=== PATIENT | male | born 2005 | race Caucasian/White ===

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

== ENCOUNTER 2025-05-07 21:46 | Emergency (ER) | payer SELFPAY ==
[2025-05-07 21:48] VITALS: BP 120/70; PULSE 95; RESP 18; TEMP 36.9; O2SAT 97; BMI 26.9
--- NOTE | 2025-05-07 21:56 | ECG_ITS ---
[facility] Test Date: 2025-05-07 Pat Name: Ken Weber Department: Room: Gender: Male Train Driver: : 2005 Requested By: Eliza aBrba Order Number: [id number] MD: Ayah Lees M.D. Measurements Intervals [place] Rate: 103 P: 67 SC: 135 QRS: 34 QRSD: 84 T: 65 QT: 306 QTc: 401 Interpretive Statements SINUS TACHYCARDIA POSSIBLE LEFT ATRIAL ENLARGEMENT [-0.1mV P-WAVE IN V1/V2] ST ELEVATION, PROBABLY EARLY REPOLARIZATION [ST ELEVATION WITH NORMALLY INFLECTED T-WAVE] ABNORMAL RHYTHM ECG No previous ECG available for comparison Electronically Signed On 05-09-2025 06:08:19 CDT by Ayah Lees M.D. [email or web address]
== END 2025-05-07 22:44 | disposition left against medical advice (07) ==
LOC: ER 21:50
PROVIDERS: Emergency Provider Family Medicine
DX: R00.0 Tachycardia, unspecified (principal); R94.31 Abnormal electrocardiogram [ECG] [EKG]; Z53.21 Procedure and treatment not carried out due to patient leaving prior to being seen by health care provider
CPT/HCPCS: 93005

== ENCOUNTER → 2025-09-19 10:53 | Outpatient (BNVA) | payer SELFPAY | DX: R50.9 Fever, unspecified (principal) | CPT/HCPCS: 87400; 87426 ==

== ENCOUNTER 2025-10-03 21:20 | Emergency (ER) | payer MEDICAID, SELFPAY ==
[2025-10-03 21:26] VITALS: BP 126/66; PULSE 73; RESP 18; TEMP 36.6; O2SAT 99; BMI 24.5
--- OUTSIDE RECORDS SUMMARY | 2025-10-03 21:32 | XMS_ITS | Encounter Summary ---
Author Organization [facility] Address [address] [place] [address] Care Team Providers Care Wound Care Physician Name Role Phone Unavailable Primary Care Provider Unavailabl e Encounter Details Date Type Department Care Team (Late st Contact Info) Description 10/01/2025 External Device Data [place] ABSTRACTION Provider, Abstract NO ADDRESS ON FILE Social History Tobacco Use Types Packs/Day Years Used Date Smoking Tobacco: Some Days Cigarettes 0.3 5.9 Started: 2019 Alcohol Use Standard Drinks/Week Comments Not Currently 0 (1 standard drink = 0.6 oz pur e alcohol) Food Insecurity Answer Date Recorded Do you find you are eating l ess than you should because you can t pay for food? No 09/05/2025 Transportation Needs Answer Date Record ed Have you gone without health care because you didn t have a way to get there? Or worry about transportation for future doctor visits, hop picker medication, etc.? No 2024 Housing Stability Answer Date Recorded Do you worry you won t have a steady place to sleep or struggle to pay rent or mortgage? No 09/05/2025 Utility Needs Answer Date Recorded Do you have difficulty payin g for utility costs (electric, water or gas bills)? No 09/05/2025 Medication Needs Answer Date Recorded Have you skipped taking medi cation due to cost or worry you can t afford new medications? Yes 09/05/2025 Feeling Safe Answer Date Recorded Are you in a relationship wi th someone who hurts you emotionally and/or physically? 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
--- OUTSIDE RECORDS SUMMARY | 2025-10-03 21:32 | XMS_ITS | Encounter Summary ---
Author Organization [facility] Address [address] [place] [address] Care Team Providers Care Human Resources Coordinator Name Role Phone Unavailable Primary Care Provider [...] worry about transportation for future doctor visits, mushroom picker medication, etc.? 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
--- OUTSIDE RECORDS SUMMARY | 2025-10-03 21:32 | XMS_ITS | Clinical Summary ---
Author Organization [facility] Address [address] [place] [address] Care Team Providers Care Food And Drug Inspector Name Role Phone Unavailable Primary Care Provider Unavailabl e Allergies Active Allergy Reactions Criticality Noted Date Comments Buspirone Rash Low 08/02/2024 Medications FLUoxetine (PROzac) 40 mg capsule Take 40 mg by mouth daily. Active traZODone (DESYREL) 50 mg tablet Take 50 mg by mouth daily at bedtime. Active BUPROPION HCL ORAL Take by mouth. Active baclofen (LIORESAL) 10 mg tablet Take 1 Tablet (10 mg) by mouth 2 times daily for 3 days. 6 Tablet 09/05/2025 Active Problems Problem Noted Date Diagnosed Date Dermatitis due to drugs or medicines 08/02/2024 Lumbar paraspinal muscle spasm 07/19/2024 Acute pain of left shoulder 07/19/2024 S/P T\T\A (status post tonsillectomy and adenoid ectomy) 10/22/2013 Strep sore throat 10/22/2013 Allergic rhinitis 01/24/2009 Encounters Date Type Department Care Team Description 10/01/2025 External Device Data [facility] ABSTRACTION Provider, Abstract 10/01/2025 External Device Data [facility] ABSTRACTION Provider, Abstract 10/01/2025 External Device Data [facility] ABSTRACTION Provider, Abstract 09/11/2025 External Device Data [facility] ABSTRACTION Provider, Abstract 09/11/2025 External Device Data [facility] ABSTRACTION Provider, Abstract 09/10/2025 External Device Data [facility] ABSTRACTION Provider, Abstract 09/05/2025 1:09 PM CDT - 09/05/2025 3:25 PM CDT Emergency [facility] [address] [place] [id number] Efraín Moore MD Back spasm (Primary Dx) Discharge Disposition: Home or Self Care 09/05/2025 Patient Outreach [facility] [address] [place] [address] Ja Faye Referral; Insurance Coverage; Healthcare Access; Medication Assistance 09/03/2025 External Device Data [facility] ABSTRACTION Provider, Abstract 07/23/2025 External Device Data [facility] ABSTRACTION Provider, Abstract 07/23/2025 External Device Data [facility] ABSTRACTION Provider, Abstract 07/23/2025 External Device Data [facility] ABSTRACTION Provider, Abstract 07/09/2025 External Device Data [facility] ABSTRACTION Provider, Abstract from Last 3 Months Immunizations Immunization Administration Dates Next Due Dt Dtp Dtap Vaccine 06/11/2008, 7,03/13/2007,2005 HIB, Unspecified Formulation 03/13/2007,01/12/20 06 Hepatitis A Vaccine 03/13/2007,01/12/2006 Hepatitis B Vaccine 03/13/2007,01/12/2006 IPV/OPV 04/25/2007,03/13/2007,01/12/2006 Influenza Vaccine Split 3+ Y rs PF IM VFC 12/01/2012 Pneumococcal 7-valent conjug ate vaccine IM 01/12/2006 Family History Medical History Relation Name Comments Healthy Brother 1 Healthy Brother 2 Healthy Father Healthy Mother Healthy Sister Relation Name Status Comments Brother 1 Alive Brother 2 Alive Father Alive Mother Alive Sister Alive Social History Tobacco Use Types Packs/Day Years Used Date Smoking Tobacco: Some Days Cigarettes 0.3 5.9 Started: 2020 Tobacco Cessation:Ready to Q uit: Not Asked; Counseling Given: Not Answered Alcohol Use Standard Drinks/Week Comments Not Currently [...] worry about transportation for future doctor visits, 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 Gender Identity Not on file Sexual Orientation Not on file Last Filed Vital Signs Vital Sign Reading Time Taken Comments Blood Pressure 122/73 09/05/2025 3:15 PM CDT Pulse 77 09/05/2025 3:15 PM CDT Temperature 36.6 C (97.8 F) 09/05/2025 3:15 PM CDT Respiratory Rate 20 09/05/2025 3:15 PM CDT Oxygen Saturation 99% 09/05/2025 3:15 PM CDT Inhaled Oxygen Concentration - - Weight 89.3 kg (196 lb 12.8 oz) 025 1:18 PM CDT Height 190.5 cm (6' 3 ) 09/05/2025 1:18 PM CDT Body Mass Index 24.6 09/05/2025 1:18 PM CDT Plan of Treatment Health Maintenance Due Date Last Done Comments CHLAMYDIA SCREENING (ANNUAL) 11-24 YEARS 2016 DTAP/TDAP/TD VACCINES (5 - Tdap) 2016 06/11/2008, 04/25/2007, 03/13/2007, Additional history exists HPV VACCINES (1 - Male 3-dos e series) 2020 INFLUENZA VACCINE (#1) 2025 12/01/2012 HEPATITIS B VACCINES Completed 03/13/2007, 01/12/2006, 2005 Medical Devices Implanted Type Area Bonded Strand Operator Device Identifier Shelf Expiration Date Model / Serial / Lot Log [id number] - Myringotomy Tubes - 1 - Tube Vent Christiano Collar [id number] Implanted:Qty: 1 on 10/16/2013 Ear Bilateral : Ear [employer] 08/13/2023 [id number] / / [id number] Procedures Procedure Name Priority Date/Time Associated Diagnosis Comments XR LUMBAR SPINE 2 OR 3 VW Stat 09/05/2025 2:00 PM CDT CBC WITH DIFFERENTIAL Stat 09/05/2025 1:30 PM CDT COMPREHENSIVE METABOLIC PANEL Stat 09/05/2025 1:30 PM CDT from Last 3 Months Results * XR LUMBAR SPINE 2 OR 3 VW (09/05/2025 2:00 PM CDT) Anatomical Region Laterality Modality Spine Computed Radiogr aphy 09/05/2025 2:00 PM CDT Impressions 09/05/2025 2:55 PM CDT IMPRESSION: Please see below. Exam: XR LUMBAR SPINE 2 OR 3 VW Date/Time of Exam: 09/05/2025 2:00 PM REASON FOR EXAM: Fall. DIAGNOSIS: See Reason for Exam. Findings: Comparison is made to the prior studies performed 07/19/2024. There is no evidence of fracture. The vertebral body heights and intervertebral disc space heights are preserved. There may be some minimal retrolisthesis of L4 and L5 and there is loss of normal lumbar lordosis. No lytic or blastic osseous lesion or radiopaque foreign body is identified. Small surgical clips are seen superimposing the left hemipelvis. IMPRESSION: No acute osseous injury. Loss of normal lordosis and minimal retrolisthesis of L4 on L5 may be due to muscular spasm. Narrative Procedure Note Ken Rowe MD - 09/05/2025 IMPRESSION: Please see below. Exam: XR LUMBAR SPINE 2 OR 3 VW Date/Time of Exam: 09/05/2025 2:00 PM REASON FOR EXAM: Fall. DIAGNOSIS: See Reason for Exam. Findings: Comparison is made to the prior studies performed 07/19/2024. There is no evidence of fracture. The vertebral body heights and intervertebral disc space heights are preserved. There may be some minimal retrolisthesis of L4 and L5 and there is loss of normal lumbar lordosis. No lytic or blastic osseous lesion or radiopaque foreign body is identified. Small surgical clips are seen superimposing the left hemipelvis. IMPRESSION: No acute osseous injury. Loss of normal lordosis and minimal retrolisthesis of L4 on L5 may be due to muscular spasm. us Efraín Moore MD DIAGNOSTIC IMAGING OR DERABLES Final Result * (ABNORMAL) CBC WITH DIFFERENTIAL (09/05/2025 1:30 PM CDT) WBC 6.0 4.2 - 9.1 K/uL 09/05/2025 1:41 PM [facility] RBC 4.42(L) 4.63 - 6.08 M/uL 09/05/2025 1:41 PM [facility] HEMOGLOBIN 13.3(L) 13.7 - 17.5 g/dL 09/05/2025 1:41 PM [facility] HEMATOCRIT 38.0(L) 40.1 - 51.0 % 09/05/2025 1:41 PM [facility] MCV 86.0 79.0 - 92.2 fL 09/05/2025 1:41 PM [facility] MCH 30.1 25.7 - 32.2 pg 09/05/2025 1:41 PM [facility] MCHC 35.0 32.3 - 36.5 g/dL 09/05/2025 1:41 PM [facility] RDW 12.5 11.0 - 14.5 % 09/05/2025 1:41 PM [facility] RDW-STDEV 39.5 36.9 - 56.9 fL 09/05/2025 1:41 PM [facility] PLATELETS 337 130 - 400 K/uL 09/05/2025 1:41 PM [facility] MPV 10.6 10.0 - 14.8 fL 09/05/2025 1:41 PM [facility] NEUTROPHILS 60 34 - 68 % 09/05/2025 1:41 PM [facility] LYMPHOCYTES 28 22 - 53 % 09/05/2025 1:41 PM CDT [facility] MONOCYTES 7 5 - 12 % 09/05/2025 1:41 PM CDT [facility] EOSINOPHILS 3 1 - 7 % 09/05/2025 1:41 PM CDT [facility] BASOPHILS 1 0 - 1 % 09/05/2025 1:41 PM CDT [facility] IMMATURE GRANULOCYTES 0 % 09/05/2025 1:41 PM CDT [facility] NEUTROPHIL ABSOLUTE 3.60 1.78 - 5.38 K/uL 09/05/2025 1:41 PM CDT [facility] LYMPHOCYTE ABSOLUTE 1.69 1.20 - 3.40 K/uL 09/05/2025 1:41 PM CDT [facility] MONOCYTE ABSOLUTE 0.44 0.30 - 0.82 K/uL 09/05/2025 1:41 PM CDT [facility] EOSINOPHIL ABSOLUTE 0.17 0.04 - 0.54 K/uL 09/05/2025 1:41 PM CDT [facility] BASOPHILS ABSOLUTE 0.07 0.01 - 0.08 K/uL 09/05/2025 1:41 PM CDT [facility] IMMATURE GRANULOCYTES ABSOLUTE 0.02 K/uL 09/05/2025 1:41 PM T [facility] Blood BLOOD SPECIMEN / Unknown Collection / Unknown 09/05/2025 1:30 PM CDT 09/05/2025 1:38 PM CDT Efraín Moore MD HEMATOLOGY ORDERABLES Final Result [facility] CLIA # [id number] [address] [place] [id number] * COMPREHENSIVE METABOLIC PANEL (09/05/2025 1:30 PM CDT) SODIUM 141 136 - 145 mmol/L 09/05/2025 1:54 PM CDT [facility] POTASSIUM 3.8 3.5 - 5.1 mmol/L 09/05/2025 1:54 PM [facility] CHLORIDE 104 98 - 107 mmol/L 09/05/2025 1:54 PM [facility] CO2 27 22 - 29 mmol/L 09/05/2025 1:54 PM [facility] CALCIUM 10.0 8.6 - 10.0 mg/dL 09/05/2025 1:54 PM [facility] BUN 15 6 - 20 mg/dL 09/05/2025 1:54 PM [facility] CREATININE 0.86 0.67 - 1.17 mg/dL 09/05/2025 1:54 PM [facility] GLUCOSE 80 74 - 99 mg/dL 09/05/2025 1:54 PM [facility] TOTAL PROTEIN 7.2 6.6 - 8.7 g/dL 09/05/2025 1:54 PM [facility] ALBUMIN 4.9 3.5 - 5.2 g/dL 09/05/2025 1:54 PM [facility] BILIRUBIN TOTAL 0.6 0.0 - 1.2 mg/dL 09/05/2025 1:54 PM [facility] ALKALINE PHOSPHATASE 57 40 - 129 U/L 09/05/2025 1:54 PM [facility] AST 17 0 - 50 U/L 09/05/2025 1:54 PM [facility] ALT 12 0 - 50 U/L 09/05/2025 1:54 PM [facility] GFR >60 >=60 mL/min/1.7 3 sq meter 09/05/2025 1:54 PM [facility] Comment:eGFR calculated with 2020 CKD-EPI equation. Vegetarian diet, extremely high or low muscle mass, and may affect results. Cystatin C with Glomerular Filtration Rate is a suitable alternative for these patients. ANION GAP 10 5 - 20 mmol/L 09/05/2025 1:54 PM [facility] Blood BLOOD SPECIMEN / Unknown Collection / Unknown 09/05/2025 1:30 PM CDT 09/05/2025 1:38 PM CDT us Efraín Moore MD CHEMISTRY ORDERABLES Final Result [facility] # [id number] [address] [place] [id number] from Last 3 Months
--- OUTSIDE RECORDS SUMMARY | 2025-10-03 21:32 | XMS_ITS | Encounter Summary ---
Author Organization [facility] Address 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 No 2024 Housing Stability [...] on file Legal Sex Male 2:[address] INS[address]OR Gender Identity Not on file Sexual Orientation Not on file documented as of this encounter Plan of Treatment Not on file documented as of this encounter Visit Diagnoses Not on filedocumented in this encounter
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
[2025-10-03 21:50] LABS: Hematocrit 42.5 % (37-53); Hemoglobin 14.70 g/dL (13.2-15.6); Mean Corpuscular HGB Conc 34.6 g/dL (30-55); Mean Corpuscular Hemoglobin 30.2 pg (27-33); Mean Corpuscular Volume 87.4 fl (82-101); Nucleated Red Blood Cells % 0 %; Platelet Count 391 10^3/cmm (157-399); Red Blood Count 4.86 10^6/uL (3.85-5.65); White Blood Count 9.52 10^3/uL (4.5-13.0)
--- NOTE | 2025-10-03 21:54 | ECG_ITS ---
[employer] Test Date: 2025-10-03 Pat Name: Ken Weber Department: Room: Gender: Male Ecologist: : 2005 Requested By: Ruthie Carbone Order Number: [id number] MD: Taqueria Housotn M.D. Measurements Intervals [place] Rate: 64 P: 33 NC: 128 QRS: 52 QRSD: 90 T: 61 QT: 364 QTc: 377 Interpretive Statements SINUS RHYTHM WITH SINUS ARRHYTHMIA EARLY REPOLARIZATION [ST ELEVATION WITH NORMALLY INFLECTED T-WAVE] Compared to ECG 05/07/2025 21:51:59 Sinus tachycardia no longer present ST (T wave) deviation no longer present Electronically Signed On 10-04-2025 13:05:53 FACETOR by Taqueria Houston M.D. [email or web address]
[2025-10-03 22:04] VITALS: PULSE 61; O2SAT 97
[2025-10-03 22:16] LABS: Alanine Aminotransferase 9 U/L (0-41); Albumin Level 4.9 g/dL (3.5-5.2); Alkaline Phosphatase 67 U/L (40-130); Anion Gap 16.8 (5-19); Aspartate Amino Transferase 12 U/L (0-40); Blood Urea Nitrogen 14 mg/dL (6-20); Calcium 9.7 mg/dL (8.5-10.5); Carbon Dioxide 24 mmol/L (22-29); Chloride 104 mmol/L (98-107); Globulin 3.1 g/dL (1.3-4.6); Glucose 89 mg/dL (65-115); Osmolality Calculated 292 mOsm/kg (285-295); Potassium 3.8 mmol/L (3.5-5.1); Sodium 141 mmol/L (136-145); Thyroid Stimulating Hormone 1.64 uIU/mL (0.27-4.20); Total Protein 8.0 g/dL (6.6-8.7)
[2025-10-03 22:20] LABS: Alcohol Level < 10 mg/dL (0-10)
[2025-10-03 23:18] LABS: Glucose Urine UA Negative (Normal); Nitrate Urine Negative (Negative)
[2025-10-03 23:23] LABS: Add Urine Microscopic? YES
[2025-10-03 23:25] LABS: PCP Screen Urine Negative (Negative)
[2025-10-03 23:44] LABS: Specific Gravity, Urine 1.034 (1.005-1.030); UA Slide Review UA Slide Review Perf
== END 2025-10-04 00:04 | disposition home or self-care (01) ==
PROVIDERS: Emergency Provider Physician Assistant
DX: R55 Syncope and collapse (principal); G90.A Postural orthostatic tachycardia syndrome [POTS]
CPT/HCPCS: 80053; 80306; 80307; 81001; 82533; 84443; 85025; 86140; 93005; 96360; 96361; 99284; J7120

== ENCOUNTER 2025-10-30 10:21 | Outpatient (CLI) | payer MEDICAID, SELFPAY ==
[2025-10-30 11:17] LABS: Estmated Average Glucose 100; Hemoglobin A1C 5.1 % (4.0-6.0)
[2025-10-30 11:25] LABS: Alanine Aminotransferase 10 U/L (0-41); Albumin Level 4.9 g/dL (3.5-5.2); Alkaline Phosphatase 61 U/L (40-130); Anion Gap 14.3 (5-19); Aspartate Amino Transferase 17 U/L (0-40); Blood Urea Nitrogen 9 mg/dL (6-20); Calcium 9.8 mg/dL (8.5-10.5); Carbon Dioxide 28 mmol/L (22-29); Chloride 101 mmol/L (98-107); Ferritin 226 ng/mL (30-400); Globulin 2.9 g/dL (1.3-4.6); Glucose 75 mg/dL (65-115); Magnesium 2.2 mg/dL (1.7-2.3); Osmolality Calculated 285 mOsm/kg (285-295); Potassium 4.3 mmol/L (3.5-5.1); Sodium 139 mmol/L (136-145); Total Protein 7.8 g/dL (6.6-8.7)
[2025-10-30 13:17] LABS: Vitamin B12 516 pg/mL (232-1245)
== END 2025-10-30 10:22 | disposition home or self-care (01) ==
PROVIDERS: PCP Pediatrics Adolescent Medicine; Visit Provider Pediatrics Adolescent Medicine
DX: Z00.00 Encounter for general adult medical examination without abnormal findings (principal); E55.9 Vitamin D deficiency, unspecified; R42 Dizziness and giddiness
CPT/HCPCS: 36415; 80053; 82306; 82607; 82728; 82746; 83036; 83090; 83735; 83921; 85651; 86140